=== PATIENT | female | born 1930 | race Caucasian/White ===

== ENCOUNTER → 2016-05-18 | Outpatient (CLI) | payer OTHER ==
[~2016-05-18] MED LIST: ADULT LOW DOSE81 MG PO; BETIMOL10 ML OP; CALCIUM 600 +1 EAC1 PO; DARVOCET-N 1001 EACH PO; DESYREL PO; FISH OIL 1,0001 EAC5 PO; GENTEAL GEL DRO15 ML OP; PANTOPRAZOLE SO40 M1 PO; TIMOLOL; TOPROL XL25 MG PO; TRAZODONE HCL50 MG PO; VYTORIN PO; XALATAN2.5 ML OP; ZOCOR20 MG PO
== END ==
LOC: CAT 08:32
DX: R91.1 Solitary pulmonary nodule (principal); K76.9 Liver disease, unspecified; K44.9 Diaphragmatic hernia without obstruction or gangrene

== ENCOUNTER → 2016-08-09 | Outpatient (CLI) | payer OTHER ==
[~2016-08-09] VITALS: Ht 152.4 cm; Wt 47.2 kg
[~2016-08-09] MED LIST changes: +BETIMOL15 ML OP
--- NOTE | ~2016-08-09 | P ---
[facility] [place] [address] [place] [address] PROCEDURE REPORT Name: REKHA GIRALDO [facility] [id number] Admission: 08/09/16 Attend Phys: Von Ag Discharge: Date of : 31 Report #: [id number] THIS REPORT FOR: //name// CC: Stormy Perea MD DATE OF SERVICE: 08/09/2016 PROCEDURE PERFORMED: Upper endoscopy with Botox injection and esophageal dilation. HISTORY OF PRESENT ILLNESS: The patient is an 85-year-old female with progressive dysphagia who underwent an initial upper endoscopy by myself on 01/11/2016 with Savary dilation of a mid esophageal stricture at 25 cm. Biopsies were also obtained at that time of the stricture, which showed no evidence of malignancy. No eosinophilic infiltrate. Biopsy showed squamous mucosa with trace chronic inflammation. The patient continued to have dysphagia and therefore, I proceeded with an upper endoscopy on 02/01/2016. At this time, using a balloon dilation at the mid esophageal stricture again. She continued to have dysphagia over time. Because of her previous history of lung cancer, we proceeded with a CT scan of her chest on 04/06/2016. This showed a moderate sized hiatal hernia, partially calcified infracarinal adenopathy which is unchanged to prior study. Reticular nodular infiltrate in the right lung was unchanged. Low attenuation mass anterior to the ascending aorta measuring 17 mm unlikely represents a small cyst or benign process, unchanged from prior study. At that time, we discussed the possibility of esophageal spasm. She was actually placed on imipramine without any improvement. Therefore, I proceeded with an esophageal manometry which was performed on 06/08/2016. 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 There was no esophageal peristalsis. At that point, we then discussed proceeding with Botox injection that was initially performed by myself on 06/03/2016. This was injected and what was thought to be the lower esophageal sphincter muscle in all 4 quadrants. I was not able to pass the scope through the area that time. The patient reported no significant improvement. We therefore discussed possible repeat Botox injection before considering surgical options, which she presents for today. DESCRIPTION OF PROCEDURE: The risks and benefits of the procedure were explained to the patient and her family, those risks including but not limited to bleeding, perforation, the risk of sedation. She understood these risks and gave informed consent. Sedation was given using propofol per anesthesia. Next, using a standard Fujinon upper endoscope, the scope was placed in the patient's mouth and advanced under direct vision into the mid to distal esophagus, at which point, I was unable to advance the scope pass this point. This was [facility] [address] [place] [address] PROCEDURE REPORT Name: REKHA GIRALDO Room #: REG [place] Amador#: [id number] Admission: 08/09/16 Attend Phys: Von Ag Discharge: Date of : 31 Report #: [id number] similar as my last upper endoscopy. I proceeded with Botox injection in 4 quadrants at this area without difficulty. Again, I was unable to pass the scope through. At this point, I decided to withdraw the regular upper endoscope and replace with a 5 mm upper endoscope. I was able to pass through the strictured area to find out that this was at 25 cm roughly to 28 cm and this likely represents the stricture and not the lower esophageal sphincter muscle. The distal esophagus looked more normal, although it was somewhat dilated. There was no esophagitis at the GE junction, which the GE junction was noted at 34 cm. Upon entering the stomach, hiatal hernia was again noted. Overall, the gastric mucosa was normal. Next, I proceeded with serial Savary dilations using a 5 mm scope initially with an 8, 9 and unable to pass to 10 despite multiple attempts. At this point, the scope was reintroduced into the area of the stricture in the mid esophagus. I was unable to pass a balloon through the channel of 5 mm scope nor was I able to advance an injection needle through the channel as it was too small. Again, I tried several times to dilate the stricture with a 10 mm Savary but was medium significant resistance and at this point, I did not want to cause any tear or damage. Therefore, the dilator was removed. I did attempt 1 final time to pass a standard upper endoscope through this area which was unsuccessful. The scope was then withdrawn and the procedure terminated. The patient tolerated the procedure well. 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 This is the area that was injected with Botox. Savary dilations were performed as described above. Unable to pass a standard upper endoscope through this area despite dilations. RECOMMENDATIONS: I had a long discussion with the patient and family regarding today's findings and procedure. The patient may have achalasia noted on manometry; however, could consider the possibility that the manometry probe was actually at the tight strictured area in the mid to distal esophagus, which could give a finding consistent with achalasia. Previous biopsies were negative in December of last year. The patient does have a history of lung cancer. Obviously, a malignancy or external compression is a concern; however, CT scan of the chest was stable in March. Overall, I explained this is difficult case and at this point, I would recommend proceeding with an upper endoscopy or an endoscopic ultrasound. We will schedule this in the near future. Potentially, biopsies could be obtained if necessary at that point. In the meantime, we discussed leaving the patient on liquids including Boost or Ensure. Thank you for allowing me to participate in her care. By: [id number] Von Cantrell MD /nt
== END ==
LOC: GI 09:10
DX: K22.2 Esophageal obstruction (principal); K44.9 Diaphragmatic hernia without obstruction or gangrene; I10 Essential (primary) hypertension; G47.33 Obstructive sleep apnea (adult) (pediatric); K21.9 Gastro-esophageal reflux disease without esophagitis; F32.9 Major depressive disorder, single episode, unspecified; Z90.49 Acquired absence of other specified parts of digestive tract; Z85.118 Personal history of other malignant neoplasm of bronchus and lung; Z90.710 Acquired absence of both cervix and uterus; Z96.641 Presence of right artificial hip joint
CPT/HCPCS: 62110; 62900

== ENCOUNTER → 2016-08-14 | Outpatient (CLI) | payer OTHER ==
[~2016-08-14] VITALS: Ht 152.4 cm; Wt 48.1 kg
[~2016-08-14] MED LIST changes: +OMEPRAZOLE 20 M20 M1 PO
--- NOTE | ~2016-08-14 | HPC ---
[facility] [address] [place] [address] PAIN MANAGEMENT CONSULTATION Name: REKHA GIRALDO Room #: REG [place] Marjorie#: [id number] Admission: 08/14/16 Attend Phys: David Ricardo MD Discharge: Date of : 31 Report #: [id number] THIS REPORT FOR: //name// CC: Marino Ricardo DATE OF SERVICE: 08/14/2016 REASON FOR VISIT: Consultation for right parascapular pain. HISTORY OF PRESENT ILLNESS: The patient is a delightful 85-year-old who is here today with her 89-year-old . They both look younger than their stated age. She is here today because she has a burning pain in the right parascapular region, medial, just at the upper edge of her scar from her previous thoracotomy. She states that it occasionally radiates around the right chest wall. She also has some of top-up pain with occasional burning. Interestingly, she had a thoracotomy in 2006 for lung cancer. She has recovered and is cancer-free now 10 years out. It was just about a year or two ago that she began experiencing more severe pain in the chest wall. We discussed how often times some disruptive injuries may take a while to show up and this was discussed later on in the visit. She describes her pain as continuous and burning. She does not want to take medications and is here to see if there are any other options for treatment. CURRENT MEDICATIONS: Aspirin, Xalatan eye drops, Caltrate, [place] 3, metoprolol, GenTeal gel drops, simvastatin, trazodone, timolol and omeprazole. ALLERGIES: LIDOCAINE, DROPERIDOL, MORPHINE, DOXYCYCLINE, CLARITIN, TRAMADOL, MIDAZOLAM, MEPERIDINE and ONDANSETRON. PAST MEDICAL HISTORY: Cancer of the lung, was treated with surgical resection by Dr. Justin Ford in 2006. She had a sternotomy in 2007 for either thyroid or thymus issue; details are not present. She had a hip replacement in 2008, which was successful. She has had several surgeries for kidney stones. PAST SURGICAL HISTORY: Distant operations include tonsillectomy, appendectomy, hysterectomy and cholecystectomy. She has had cataract surgery. Dr. Mendez watches over high blood pressure and some mild kidney disease. She has irritable bowel syndrome. She is being evaluated currently for what sounds like a Schatzki ring or sphincter or an esophageal narrowing. This had been treated with dilatation and Botox and she has appointment upcoming with a management tech for additional treatment. [place] [address] PAIN MANAGEMENT CONSULTATION Name: REKHA GIRALDO Room #: REG [facility].#: [id number] Admission: 08/14/16 Attend Phys: David Ricardo MD Discharge: Date of : 31 Report #: [id number] SOCIAL HISTORY: She is . Denies tobacco or alcohol. PHYSICAL EXAMINATION: GENERAL: She is a yovani 85-year-old, pleasant, alert and without signs of dementia or anxiety. VITAL SIGNS: Blood pressure is 129/48, heart rate 72 and respirations 16. She is 5 feet tall with a BMI of 20.7. LUNGS: Her breathing is easy. CHEST: Clear. CARDIAC: Rhythm is regular. I cannot appreciate a murmur. ABDOMEN: Soft. EXTREMITIES: Free from edema. Peripheral pulses are palpable throughout. SPINE: Examination of the spine and area of concern reveals no obvious palpable masses or changes. She has good range of motion of the arms and thorax. Deep breathing does not cause the pain. She has localized tenderness in along the costovertebral articulation and radiating outwards towards the inferior medial border of the scapula. 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 We have seen patients who develop some articular generated costochondritis or arthritis. I do not think Dr. Mendez is thinking along the same lines. PLAN: I had a nice long discussion about diagnosis with the patient and her . I think they understand that this is certainly a probably cause, although there are other issues that may be adding to her differential diagnosis, not the least of which is the sphincter of the esophageal stenosis, which is currently under treatment. This can oftentimes radiate straight to the back as can other visceral pains. She would like to see how she does following her procedure. RECOMMENDATIONS: An injection may be both diagnostic and therapeutic. I would inject the sixth, seventh and eighth rib articulation of the spine under fluoroscopic guidance and this was explained with risks and benefits to the patient. Return appointment will be made. Thank you for your consultation. By: [id number] David Ricardo MD /nt
[2016-08-14 13:27] VITALS: BP 129/48
== END ==
LOC: PAIN 06:59
DX: M54.6 Pain in thoracic spine (principal); Z85.118 Personal history of other malignant neoplasm of bronchus and lung; Z87.442 Personal history of urinary calculi